=== PATIENT | female | born 1995 | race Two or more races ===

== ENCOUNTER 2016-08-31 15:40 | Emergency (ER) | payer OTHER ==
[~2016-08-31] VITALS: Ht 157.5 cm; Wt 59.0 kg
[2016-08-31 16:09] VITALS: BP 120/81
== END 2016-08-31 19:56 | disposition home or self-care (01) ==
LOC: ER 15:42
DX: J32.9 Chronic sinusitis, unspecified (principal); R51 Headache; R07.81 Pleurodynia; R05 Cough